=== PATIENT | male | born 1955 | race Caucasian/White ===

== ENCOUNTER 2022-11-13 17:51 | Emergency (ER) | payer MEDICARE, OTHER ==
[2022-11-13] MEDS ORDERED: Tetracaine HCl/PF 0.5% 4 ML Bottle EYERT ONE (17:59)
[2022-11-13] MEDS ORDERED: Fluorescein 1 MG Ophth Strip EYERT ONE (18:00)
[2022-11-13] MEDS ORDERED: Gentamicin 0.3% Ophth Soln 5 ML Bottle EYERT ONE (18:01)
== END 2022-11-13 18:29 | disposition home or self-care (01) ==
LOC: EDBD 17:51 → DL.ED 17:51
DX: S05.01XA Injury of conjunctiva and corneal abrasion without foreign body, right eye, initial encounter (principal)
CPT/HCPCS: 99283; A9270-GY; J3490